=== PATIENT | female | born 1995 | race African-American/Black ===

== ENCOUNTER 2020-10-29 13:35 | Emergency (ER) | payer OTHER ==
[~2020-10-29] VITALS: Ht 157.5 cm; Wt 50.0 kg
[2020-10-29] MEDS ORDERED: ONDANSETRON HCL 4MG/2ML INJ IV ONE ×2 (14:00→16:15)
[2020-10-29] MEDS ORDERED: MORPHINE SULFATE 4 MG/ML CPJ (NOT FOR IM USE) IV ONE ×2 (14:00→17:15)
[2020-10-29 14:29] LABS: BASOPHILS % 0.2 % (0.0-2.0); EOSINOPHILS % 0.1 % (0.0-5.0); HEMATOCRIT. 40.4 % (36.0-48.0); LYMPHOCYTES % 7.9 % (20.0-50.0); MEAN CORPUSCULAR HEMOGLOBIN 32.3 pg (28.0-32.0); MEAN CORPUSCULAR VOLUME 93.4 fL (81.0-99.0); MEAN PLATELET VOLUME 9.8 fl (7.4-10.4); NEUTROPHILS % 87.8 % (40.0-76.0); PLATELET 209 x1000/uL (130-400); RED BLOOD CELL COUNT 4.33 mill/uL (4.2-5.4); RED CELL DISTRIBUTION WIDTH 12.8 % (11.6-14.6)
[2020-10-29 14:37] LABS: CHLORIDE 102 mEq/L (98-107)
[2020-10-29 15:32] LABS: B-HCG QUANTITATIVE 34847 mIU/mL (<3)
[2020-10-29 16:08] LABS: CLARITY URINE CLEAR (CLEAR); COLOR URINE DARK YELLOW (YELLOW); KETONES URINE 4+ (NEGATIVE); LEUKOCYTE ESTERASE URINE 2+ (NEGATIVE); NITRITE URINE NEGATIVE (NEGATIVE); OCCULT BLOOD URINE NEGATIVE (NEGATIVE); PH URINE 7.5 (4.5-8.0); PROTEIN URINE 1+ (NEGATIVE); SPECIFIC GRAVITY URINE 1.034 (1.005-1.030)
[2020-10-29] MEDS ORDERED: CEFTRIAXONE 1 G PREMIX 50 ML IV ONE (16:45)
[2020-10-29 17:00] VITALS: BP 124/56
[2020-10-29] MEDS ORDERED: CEPH500C2 MT (17:04)
[2020-10-29] MEDS ORDERED: ACETAMINOPHEN 325MG TABLET PO ONE (17:15)
[2020-10-29] MEDS ORDERED: SODIUM CHLORIDE 0.9% 1,000 ML IV ONE (17:30)
[2020-10-29] MEDS ORDERED: HYDR-4346 PO (17:32)
[2020-10-29] MEDS ORDERED: ONDA4TAB11 PO (17:32)
[2020-10-29] MEDS ORDERED: HYDR-4346 MT (17:42)
== END 2020-10-29 18:21 | disposition home or self-care (01) ==
LOC: ER 14:04
DX: O20.0 Threatened abortion (principal); O23.42 Unspecified infection of urinary tract in pregnancy, second trimester; Z3A.16 16 weeks gestation of pregnancy
CPT/HCPCS: 36415; 76805; 76817; 80053; 81003; 84702; 85025; 86850; 86900; 86901; 93005; 96361; 96365; 96375; 96376; 99285; J0696; J2270; J2405; J7030; Z7610

== ENCOUNTER 2021-02-09 02:52 | Emergency (ER) | payer MEDICAID, OTHER ==
[~2021-02-09] VITALS: Ht 157.5 cm; Wt 48.0 kg
[~2021-02-09 02:52] MED LIST: CEPH500C2 MT; HYDR-4346 MT; ONDA4TAB11 PO
[2021-02-09 02:55] VITALS: BP 148/88
[2021-02-09] MEDS ORDERED: KETOROLAC 30MG/ML VIAL IM ONE (03:30)
[2021-02-09] MEDS ORDERED: IBUP-2028 MT (03:36)
== END 2021-02-09 03:59 | disposition home or self-care (01) ==
LOC: ER 02:52
DX: R51.9 Headache, unspecified (principal); Z98.890 Other specified postprocedural states; Z79.899 Other long term (current) drug therapy
CPT/HCPCS: 81025; 96372; 99283; J1885